=== PATIENT | male | born 1935 | race African-American/Black ===

== ENCOUNTER 2016-08-02 10:22 | Outpatient (CLI) | payer MEDICARE, MEDICAID ==
[2016-08-02 12:51] LABS: Bilirubin Negative (Negative); Blood, Urine Negative (Negative); Clarity Clear (Clear); Glucose, Urine (Dipstick) Negative (Negative); Leukocyte Negative (Negative); Nitrite Negative (Negative); Protein, Urine (Dipstick) Negative (Neg-Trace); pH, Urine 5.5 (5.0-9.0)
[2016-08-02 13:01] LABS: ALT (SGPT) 13 U/L (0-55); AST (SGOT) 15 U/L (5-34); Albumin 3.9 g/dL (3.4-4.8); Alkaline Phosphatase 72 U/L (40-150); Anion Gap 13 mmol/L (10-20); BUN (Urea Nitrogen) 15 mg/dL (8.4-25.7); Bilirubin, Total 0.8 mg/dL (0.2-1.2); Calc. Creatinine Clearance 0 mL/min (70-130); Calcium 9.2 mg/dL (7.8-10.44); Carbon Dioxide 24 mmol/L (23-31); Cardiac Risk 3.4 (Less than 4.5); Chloride 103 mmol/L (98-107); Cholesterol 117 mg/dL (< 200 Desired); Estimated GFR-MDRD 61; Globulin 3.5 g/dL (2.4-3.5); Glucose 101 mg/dL (83-110); HDL Cholesterol 34 mg/dL (>60 Neg Risk); LDL Cholesterol, Calculated 55 mg/dL; Potassium 4.3 mmol/L (3.5-5.1); Protein, Total 7.4 g/dL (5.8-8.1); Sodium 136 mmol/L (136-145); Triglycerides 141 mg/dL (Less than 150)
[2016-08-02 13:41] LABS: Hemoglobin A1c 7.4 % (4.0-6.0)
[2016-08-02 13:46] LABS: #Eosinphils 0.3 thou/uL (0.0-0.7); #Lymphocytes 1.2 thou/uL (1.20-3.40); #Monocytes 0.4 thou/uL (0.11-0.59); #Neutrophils 1.8 thou/uL (1.40-6.50); %Basophils 1.1 % (0.0-1.0); %Eosinophils 6.7 % (0.0-10.0); %Lymphocytes 31.8 % (21.0-51.0); %Monocytes 11.7 % (0.0-10.0); %Neutrophils 48.6 % (42.0-75.0); Hemoglobin 13.1 g/dL (14.0-18.0); Mean Corpuscular HGB CONC 33.5 g/dL (32.0-36.0); Mean Corpuscular Hemoglobin 30.5 pg (27.0-31.0); Mean Corpuscular Volume 90.9 fl (80.0-94.0); Mean Platelet Volume 12.5 fL (7.4-10.4); Platelet Count 122 thou/uL (130-400); RBC Distribution Width 11.6 % (11.5-14.5); Red Blood Cell (RBC) Count 4.28 mill/uL (4.70-6.10); White Blood Cell (WBC) Count 3.8 thou/uL (4.8-10.8)
[2016-08-02 13:47] LABS: Anisocytosis SLIGHT = 6-15 cells (100X) (0-5/hpf); MDiff Complete? YES; PLT Morphology Comment Appears Adequate
== END 2016-08-02 10:23 | disposition home or self-care (01) ==
LOC: NAVSJIPCSP 10:22
PROVIDERS: ATTEND Internal Medicine
DX: E78.5 Hyperlipidemia, unspecified (principal); E03.9 Hypothyroidism, unspecified; I10 Essential (primary) hypertension; E11.311 Type 2 diabetes mellitus with unspecified diabetic retinopathy with macular edema
CPT/HCPCS: 36415; 80053; 80061; 81003; 83036; 85025

== ENCOUNTER 2016-11-09 08:57 | Outpatient (CLI) | payer MEDICARE, MEDICAID ==
[2016-11-09 12:49] LABS: #Lymphocytes 1.3 thou/uL (1.20-3.40); #Monocytes 0.5 thou/uL (0.11-0.59); #Neutrophils 7.3 thou/uL (1.40-6.50); %Basophils 0.4 % (0.0-1.0); %Eosinophils 0.1 % (0.0-10.0); %Lymphocytes 14.4 % (21.0-51.0); %Monocytes 5.4 % (0.0-10.0); %Neutrophils 79.8 % (42.0-75.0); Mean Corpuscular HGB CONC 32.5 g/dL (32.0-36.0); Mean Corpuscular Hemoglobin 28.8 pg (27.0-31.0); Mean Corpuscular Volume 88.7 fl (80.0-94.0); Mean Platelet Volume 10.6 fL (7.4-10.4); Platelet Count 153 thou/uL (130-400); RBC Distribution Width 12.1 % (11.5-14.5); Red Blood Cell (RBC) Count 4.16 mill/uL (4.70-6.10); White Blood Cell (WBC) Count 9.2 thou/uL (4.8-10.8)
[2016-11-09 13:08] LABS: Cardiac Risk 2.8 (Less than 4.5)
[2016-11-09 13:15] LABS: Hemoglobin A1c 6.7 % (4.0-6.0)
[2016-11-09 19:19] LABS: Folate (Folic Acid) 5.5 ng/mL (7.0-31.4)
== END 2016-11-09 08:58 | disposition home or self-care (01) ==
LOC: NAVSJIPCSP 08:57
PROVIDERS: ATTEND Internal Medicine
DX: E11.311 Type 2 diabetes mellitus with unspecified diabetic retinopathy with macular edema (principal); D64.9 Anemia, unspecified; E78.5 Hyperlipidemia, unspecified; Z79.899 Other long term (current) drug therapy
CPT/HCPCS: 36415; 80061; 82607; 82728; 82746; 83036; 83540; 83550; 85025

== ENCOUNTER 2018-02-11 11:08 | Emergency (ER) | payer MEDICARE, MEDICAID ==
[2018-02-11] MEDS ORDERED: diphenhydrAMINE 12.5 MG/5 ML UDCUP ONE (11:36)
[2018-02-11] MEDS ORDERED: methylPREDNISolone Sod Succ/PF 125 MG/2 ML VIAL ONE (11:36)
[2018-02-11] MEDS ORDERED: diphenhydrAMINE 50 MG/ML VIAL ONE (11:37)
[2018-02-11] MEDS ORDERED: cloNIDine 0.1 MG TAB ONE (13:58)
== END 2018-02-11 14:53 | disposition home or self-care (01) ==
LOC: NAV ERS 11:08 → EDBD 11:08 → NAV ERS 14:53
DX: T78.40XA Allergy, unspecified, initial encounter (principal); I10 Essential (primary) hypertension; E78.5 Hyperlipidemia, unspecified; M19.90 Unspecified osteoarthritis, unspecified site; D64.9 Anemia, unspecified; E03.9 Hypothyroidism, unspecified; Z87.891 Personal history of nicotine dependence; Z79.899 Other long term (current) drug therapy; Z79.82 Long term (current) use of aspirin
CPT/HCPCS: 96372; J1200; J2930